=== PATIENT | male | born 1990 | race Two or more races ===

== ENCOUNTER 2025-01-31 01:15 | Emergency (ER) | payer MEDICAID, OTHER ==
[~2025-01-31] VITALS: Ht 162.6 cm; Wt 72.1 kg
[2025-01-31] MEDS: TETRACAINE HCL 0.5% OPTH(EYE) SOLN 4ML RIGHTEYE ONE (01:41)
[2025-01-31] MEDS: FLUORESCEIN SOD OPTH TEST STRIP RIGHTEYE ONE (01:41)
[2025-01-31 01:47] VITALS: BP 149/83; PULSE 66; RESP 14; TEMP 97.4; O2SAT 100
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
== END 2025-01-31 01:55 | disposition home or self-care (01) ==
LOC: ER 01:15
DX: T15.91XA Foreign body on external eye, part unspecified, right eye, initial encounter (principal); X58.XXXA Exposure to other specified factors, initial encounter; Y93.89 Activity, other specified; Y92.89 Other specified places as the place of occurrence of the external cause; Y99.8 Other external cause status